=== PATIENT | male | born 1990 | race Two or more races ===

== ENCOUNTER → 2022-08-29 | Emergency (ER) | payer SELFPAY ==
[~2022-08-29] VITALS: Ht 175.3 cm; Wt 90.7 kg
--- NOTE | 2022-08-29 16:50 | NUR ---
Patient [id number] able to express own concerns. Patient with no signs of distress or discomfort, VSS. Discussed plan of care, patient verbalized agreement.
--- NOTE | 2022-08-29 18:01 | NUR ---
Discussed discharge plan with pt, verbalized agreement, form signed
[2022-08-29 18:02] VITALS: BP 128/65
== END | disposition home or self-care (01) ==
LOC: ER 16:34
DX: S13.4XXA Sprain of ligaments of cervical spine, initial encounter (principal); M25.562 Pain in left knee; M25.532 Pain in left wrist; V89.2XXA Person injured in unspecified motor-vehicle accident, traffic, initial encounter; Y93.89 Activity, other specified; Y92.89 Other specified places as the place of occurrence of the external cause; Y99.8 Other external cause status
CPT/HCPCS: 72050-TC; 73110; 73564-TC